=== PATIENT | female | born 1940 | race Hispanic/Latino ===

== ENCOUNTER 2018-01-09 06:34 | Day surgery (SDC) | payer MEDICARE, BC ==
[2018-01-06 10:07] VITALS: BMI 29.7
--- NOTE | 2018-01-09 06:21 | HP ---
Copied To: Tera Wright MD Attending MD: Tera Wright MD REASON FOR ADMISSION: Left heart catheterization, possible angioplasty, abnormal stress test. BRIEF CLINICAL HISTORY: This is a 77-year-old female with past medical history significant for CVA, hypertension, hyperlipidemia, possible coronary artery disease, abnormal stress test, scheduled for elective cardiac catheterization and possible angioplasty because of abnormal stress test. PAST MEDICAL HISTORY: Significant for moderate aortic stenosis, moderate MR, moderate AI, COPD, CVA, hyperlipidemia, hypertension. SOCIAL HISTORY: Denies any smoking. Denies any history of alcohol abuse. CURRENT MEDICATIONS: Patient is taking Coumadin 2 mg daily, last dose 01/01/2018, Lexapro, losartan and hydrochlorothiazide 50/12.5 mg daily, Pravachol 60 mg daily, Spiriva inhaler, amlodipine, Norvasc 10 mg daily. ALLERGIES: TO IODINE, MONOSODIUM GLUTAMATE. RECENT CARDIAC WORKUP: As follows, patient had a stress test done, dated 12/17/2017, that shows probably abnormal myocardial perfusion study, reversible small mid-anteroseptal defect suspicious for ischemia, ejection fraction 64%; when compared this study from 10/03/2016, the defect appears new. EKG showed normal sinus, poor R-R progression, hyperacute T-wave. Patient had an echocardiography done dated 12/12/2017 that showed ejection fraction of 65%, technically difficult study, [id number] , trace aortic regurgitation, xnyqzlkf-kd-yyzajk mitral regurgitation, trace tricuspid regurgitation, pulmonary insufficiency trace. REVIEW OF SYSTEMS: As per HPI. PHYSICAL EXAMINATION: VITAL SIGNS: Height of the patient is 5 feet 6 inches, weight of the patient is 184 pounds, body mass index of 9.7 kg/m2, blood pressure 136/84, heart rate 68. HEENT: PERRLA. Extraocular muscles intact. NECK: Supple. No carotid bruit. No thyromegaly. CHEST: Clear to auscultation. HEART: S1 and S2 regular. ABDOMEN: Soft. EXTREMITIES: Clubbing and cyanosis negative. LABORATORY DATA: Blood workup pending. IMPRESSION: Abnormal stress test showing anterior wall ischemia, hypertension, hyperlipidemia, history of cerebrovascular accident, iyzt-[id number] aortic stenosis and mitral regurgitation. RECOMMENDATION: We will repeat the blood workup. We will load with aspirin and Plavix, also premedicate for IODINE ALLERGY and left heart catheterization and angioplasty when the blood workup is available. Risks, benefits and alternatives discussed with the patient. Patient agreed. We will proceed for cardiac catheterization. Further recommendation depending upon the catheterization finding. We will follow with you. Thank you, Dr. Hebert/Dr. Alamo for providing us the opportunity in taking care of the patient, Suzette Ruiz. Tera Wright MD
[2018-01-09 07:44] LABS: BASO # 0.01 K/mm3 (0.0-2.0); BASO % 0.2 % (0.0-3.0); EOS % 0.5 % (1.5-5.0); GRAN # 3.99 (1.4-6.5); GRAN % 62.3 % (50.0-68.0); HEMOGLOBIN 12.3 g/dL (12.0-16.0); LYMPH # 1.8 (1.2-3.4); LYMPH % 27.5 % (22.0-35.0); MEAN CELL VOLUME 91.5 fl (80.0-105.0); MEAN CORPUSCULAR HEMOGLOBIN 29.9 pg (25.0-35.0); MEAN CORPUSCULAR HGB CONC 32.7 g/dl (31.0-37.0); MEAN PLATELET VOLUME 10.4 fl (7.0-11.0); MONO # 0.6 (0.1-0.6); MONO % 9.5 % (1.0-6.0); RBC 4.11 10^6/uL (3.5-6.1); RED CELL DISTRIBUTION WIDTH 14.5 % (11.5-14.5); WHITE BLOOD COUNT 6.4 10^3/ul (4.5-11.0)
[2018-01-09 07:48] LABS: INR 1.01; PROTHROMBIN TIME 11.6 SECONDS (9.4-12.5)
[2018-01-09 07:49] LABS: CALCIUM 9.8 mg/dL (8.4-10.5)
[2018-01-09 07:51] LABS: PARTIAL THROMBOPLASTIN TIME 33.6 Seconds (25.1-36.5)
[2018-01-09] MEDS ORDERED: DiphenhydrAMINE 50 mg/ml Inj ONE (08:45)
[2018-01-09] MEDS ORDERED: Famotidine 20mg/50ml 20 MG/50 ML BAG IVPB ONE (08:46)
[2018-01-09] MEDS ORDERED: Iodixanol 320 MG/ML 100 ML BOTTLE IV ONE (09:01)
[2018-01-09] MEDS ORDERED: Lidocaine PF 2% (5 ml) Inj (For Cardiac Arrhy) ONE (09:01)
[2018-01-09] MEDS ORDERED: Iodixanol 320 MG/ML 200 ML BOTTLE IV ONE (09:01)
[2018-01-09] MEDS ORDERED: Iohexol 350mgl/ml 50 ML ONE (09:01)
[2018-01-09] MEDS ORDERED: Midazolam 2 MG/2 ML VIAL ONE (09:40)
[2018-01-09] MEDS ORDERED: Sodium Chloride 0.9% 1,000 ML IV SCH (11:00)
[2018-01-09 11:20] VITALS: RESP 20; TEMP 98.3
--- NOTE | 2018-01-09 14:41 | CPOSTOP ---
Copied To: Tera Wright MD Attending MD: Tera Wright MD DATE: 01/09/2018 CARDIOVASCULAR LAB POSTPROCEDURE NOTE DICTATING PHYSICIAN: Tera Wright MD STAFF PHARMACIST HOSP[facility]: [facility]. TYPE OF ANESTHESIA: Moderate conscious sedation, total dose given 2 mg of Versed and 100 of fentanyl, started with 1 mg of Versed and 50 of fentanyl. PRE-PROCEDURE DIAGNOSES: Unstable angina, abnormal stress test. PROCEDURES PERFORMED: 1. Left heart catheterization. 2. Intravascular ultrasound of left anterior descending and left main. FINDINGS: Left main distal 60% stenosis. FINAL DIAGNOSIS: Left main disease. POST PROCEDURE CONDITION: Patient's condition is stable. VASCULAR ACCESS SITE: Right femoral groin. CLOSURE DEVICE: Mynx. TOTAL RADIATION DOSE: 73985.80 milligray unit. FLUORO TIME: 9.9 minutes. Tera Wright MD
[2018-01-09 14:43] VITALS: O2SAT 99
[2018-01-09 14:44] VITALS: BP 140/64; PULSE 66
--- NOTE | 2018-01-09 16:59 | CARD ---
APPROVED REPORT Date of service: 01/09/2018 Procedure(s) performed: Left Heart Catheterization IVUS of Left main HISTORY The patient is a 77 year-old female with a history of : previous CVA remote >= 2 weeks, peripheral vascular disease, chronic lung disease, tobacco history() : The patient is a former smoker , hypertension , dyslipidemia , cerebrovascular disease , Moderate MR, Mild to ModerateAS by Echo, Hx of CVA on Coumadin and COPD. INDICATION The indication(s) include : positive stress test. CASE TECHNIQUE The patient was brought electively to the Cardiac Catheterization Laboratory in a fasting state and was prepped and draped in a sterile manner. The right femoral groin was infiltrated with 2% Lidocaine subcutaneous anesthesia. A 6 Fr x 11 cm Martha sheath was inserted into the right femoral artery without difficulty. Coronary angiography was performed using coronary diagnostic catheters. The left coronary system was accessed and visualized with a Diagnostic ,6 Fr JL 4 catheter. The right coronary system was accessed and visualized with a Diagnostic ,6 Fr JR 4 catheter. The left ventricle was accessed and visualized with a 6 Fr Pigtail catheter. Left ventricular/Aortic Valve gradient assessed on pullback. Left ventriculogram was performed in CULVER projection. Closure device was deployed with a 6 Fr / 7 Fr MynxGrip without any complications. The patient tolerated the procedure well and there were no complications associated with the procedure. Vessel Analysis The patient's coronary anatomy is right dominant. The left main coronary artery is a large size vessel with diffuse calcification noted throughout this vessel and with significant stenosis. There is a 60-70% stenosis in the distal segment. The left main bifurcates to the left anterior descending and circumflex. The left anterior descending artery is a medium size vessel with diffuse calcification noted throughout this vessel and without significant stenosis. The first diagonal branch is a medium size vessel with diffuse calcification noted throughout this vessel and without significant stenosis. The circumflex artery is a medium size vessel with diffuse calcification noted throughout this vessel and without significant stenosis. The first obtuse marginal branch is a medium size vessel with diffuse calcification noted throughout this vessel and without significant stenosis. Very tortous vessel The right coronary artery is a large size vessel with diffuse calcification noted throughout this vessel and without significant stenosis. There is a 30% stenosis in the proximal segment. The right posterior descending artery is a medium size vessel with diffuse calcification noted throughout this vessel and without significant stenosis. The right posterolateral branch is a medium size vessel with diffuse calcification noted throughout this vessel and without significant stenosis. Left Ventricle The left ventricle is normal in size with normal contractility. There was no cardiomyopathy. The left ventricular ejection fraction is estimated to be 65%. The left ventricular end diastolic pressure is 12-15 mmHg. There was no gradient across the aortic valve upon pullback. Moderate MR on LV gram IVUS Anticoagulation was achieved with Heparin. Intravascular Ultrasound was performed on the left main coronary artery vessel. A 6 Fr XB 3 Guide Catheter was used to engage the left main ostium. A [employer] 182 Interventional Guidewire was used. A IVUS catheter was used. FINDINGS Proximal LAD Area 5.9 cm2, distal left Main Area 3.9 cm2, and proximal Left main area 9.0cm2. COMMENTS Critical distal left main stenosis. PCI Technique Lesion Percutaneous coronary intervention was performed on the distal left anterior descending artery segment. Conclusion Critical distal left main stenosis. Mild proxmal RCA stenosis. preserved Lv Fx. EF-65%, DCA98-46 mmof hg. No gradient across aortc valve by cath, Moderate MR on LV gram Recommendations Revascularization by [facility] VS High Risk PCi of left main with Impella. ( Pt has Hx of CVA and high risk for Amelia-operative CVA). Continue to Hold Coumadin, ASA and plavix for now Further Recommendation after revascularization. Cc; Pawan Nova/ Anup.
[2018-01-10] MEDS ORDERED: Non Formulary Medication (Losartan/Hydrochlorothiazide [Losartan-Hctz 50-12.5 Mg Tab] 1 TA PO SCH (10:00)
[2018-01-10] MEDS ORDERED: Tiotropium 18 mcg Cap For Inhalation IH SCH (10:00)
[2018-01-10] MEDS ORDERED: [UNRECOGNIZED DRUG - OTHER] INH SCH (10:00)
[2018-01-10] MEDS ORDERED: VILANTEROL INH SCH (10:00)
== END 2018-01-09 16:10 | disposition home or self-care (01) ==
LOC: CATH 06:34
PROVIDERS: ATTEND Internal Medicine Cardiovascular Disease
DX: I25.110 Atherosclerotic heart disease of native coronary artery with unstable angina pectoris (principal); I10 Essential (primary) hypertension; E78.5 Hyperlipidemia, unspecified; I08.0 Rheumatic disorders of both mitral and aortic valves; I73.9 Peripheral vascular disease, unspecified; J44.9 Chronic obstructive pulmonary disease, unspecified; Z79.01 Long term (current) use of anticoagulants; Z86.73 Personal history of transient ischemic attack (TIA), and cerebral infarction without residual deficits; R94.39 Abnormal result of other cardiovascular function study; Z87.891 Personal history of nicotine dependence
CPT/HCPCS: 36415; 80048; 80061; 85025; 85610; 85730; 86850; 86900; 92978; 93458; 99152; 99153; C1753; C1760; C1769 ×2; C1887; C2629; J1200; J1644 ×2; J2250; J2930; J3010; J7030; Q9966; Q9967

== ENCOUNTER 2018-09-24 11:30 | Outpatient (CLI) | payer MEDICARE, BC | END 2018-09-24 11:31 | disposition home or self-care (01) | LOC: RAD 11:30 ==

== ENCOUNTER 2018-10-02 08:27 | Outpatient (CLI) | payer MEDICARE, BC | END 2018-10-02 08:28 | disposition home or self-care (01) | LOC: CARDIO 08:27 | DX: I25.10 Atherosclerotic heart disease of native coronary artery without angina pectoris (principal); R06.02 Shortness of breath; R60.9 Edema, unspecified ==